=== PATIENT | female | born 1945 | race Two or more races ===

== ENCOUNTER → 2024-09-05 | Outpatient (CLI) | payer MEDICARE, MEDICAID, SELFPAY ==
--- NOTE | 2024-09-05 | XR_ITS ---
Examination: CT abdomen and pelvis without contrast. Coronal 3-D reconstructions. Sagittal 2-D reconstructions. Date and time of exam:September 05, 2024 0809 hours INDICATIONS: Right upper abdominal pain flank pain beginning 3 months ago CTDI: vol (mGy): 8.20 DLP: (mGycm): 418 Technique: Axial images of the abdomen have been obtained, 3 mm slice thickness Intravenous contrast material has not been administered. Low dose protocols were performed. One or more of the following dose reduction techniques were used; automated exposure control, adjustment of the mA and/or KV according to patient size, use of iterative reconstruction technique. Findings: Cirrhosis, liver nodular in contour, no focal liver lesions Gallstones Splenomegaly. Portosystemic collateral vessels medial to the spleen No pancreatic mass No renal or ureteral calculi Trace ascites 20 mm fat-containing umbilical hernia Normal appendix No bowel obstruction Atrophic uterus Mildly fluid distended small bowel loops throughout the abdomen Urinary bladder intact Severe osteopenia IMPRESSION: Cirrhosis Splenomegaly Cholelithiasis Trace ascites Normal appendix Hepatic enteropathy
== END | disposition home or self-care (01) ==
PROVIDERS: PCP Family Medicine; Referring Provider Student in an Organized Health Care Education/Training Program; Visit Provider Student in an Organized Health Care Education/Training Program
DX: K74.60 Unspecified cirrhosis of liver (principal); R18.8 Other ascites; R16.1 Splenomegaly, not elsewhere classified; K80.20 Calculus of gallbladder without cholecystitis without obstruction
CPT/HCPCS: 74176